=== PATIENT | male | born 1970 | race Caucasian/White ===

== ENCOUNTER 2024-05-10 17:17 | Emergency (ER) | payer SELFPAY ==
[~2024-05-10] VITALS: Ht 188 cm; Wt 95.3 kg
[2024-05-10 17:17] VITALS: BP_SYST 114; PULSE 100; RESP 18; TEMP 97.8; O2SAT 99
[2024-05-10 18:10] LABS: BASOPHILS # (AUTO) 0.2 K/uL (0.0-0.2); BASOPHILS % (AUTO) 4.2 % (0.0-2.0); EOSINOPHILS # (AUTO) 0.1 K/uL (0.0-0.4); EOSINOPHILS % (AUTO) 2.2 % (0.0-4.0); HEMATOCRIT 42.4 % (36-54); HEMOGLOBIN 14.6 g/dL (14.0-18.0); LYMPHOCYTES # (AUTO) 1.3 K/uL (1.0-5.5); LYMPHOCYTES % (AUTO) 28.3 % (20.5-51.5); MEAN CORPUSCULAR HEMOGLOBIN 35 pg (27-31); MEAN CORPUSCULAR HGB CONC 34 % (32-36); MEAN CORPUSCULAR VOLUME 100 fL (79.0-98.0); MONOCYTES # (AUTO) 0.4 K/uL (0.0-1.0); MONOCYTES % (AUTO) 8.3 % (1.7-9.3); NEUTROPHILS # (AUTO) 2.7 K/uL (1.8-7.7); PLATELET COUNT (AUTO) 131 K/uL (130-430); RED BLOOD CELL COUNT(AUTO) 4.22 MIL/uL (4.2-6.2); RED CELL DISTRIBUTION WIDTH 15.7 % (9.0-15.0); WHITE BLOOD COUNT (AUTO) 4.7 K/uL (4.8-10.8)
[2024-05-10 18:25] LABS: ALBUMIN 3.4 g/dL (3.4-4.8); CALCIUM 8.1 mg/dL (8.4-11.0); CREATININE 0.88 mg/dL (0.55-1.30); POTASSIUM 3.3 mmol/L (3.5-5.1); TOTAL BILIRUBIN 0.8 mg/dL (0.0-1.0); TOTAL PROTEIN, SERUM 7.2 g/dL (6.4-8.3)
[2024-05-10 18:28] LABS: BILIRUBIN,DIRECT 0.5 mg/dL (0.0-0.3)
[2024-05-10] MEDS: CALCIUM CARBONATE 650 MG TABLET PO ONE (18:48)
[2024-05-10] MEDS: BACITRACIN 1 GM OINT TP ONE (18:59)
[2024-05-10] MEDS: NACL 0.9% 1,000 ML IV ONE (18:59)
[2024-05-10] MEDS: CALCIUM GLUC 1 GM/100ML-NACL 100 ML IV ONE (19:01)
[2024-05-10 19:50] VITALS: BP_SYST 122; PULSE 92; RESP 20; TEMP 97.7; O2SAT 97
== END 2024-05-10 19:50 | disposition home or self-care (01) ==
LOC: SED 17:17
DX: F10.129 Alcohol abuse with intoxication, unspecified (principal); S00.01XA Abrasion of scalp, initial encounter; S80.212A Abrasion, left knee, initial encounter; S50.312A Abrasion of left elbow, initial encounter; Z79.899 Other long term (current) drug therapy; W22.8XXA Striking against or struck by other objects, initial encounter; Y93.89 Activity, other specified; Y92.89 Other specified places as the place of occurrence of the external cause; Y99.8 Other external cause status; Y90.6 Blood alcohol level of 120-199 mg/100 ml
CPT/HCPCS: 99285; 96365; 70450; 80076; 80048; 85025; 36415; G0482